=== PATIENT | female | born 1995 | race Caucasian/White ===

== ENCOUNTER 2016-11-18 16:09 | Emergency (ER) | payer OTHER ==
[~2016-11-18] VITALS: Ht 154.9 cm; Wt 52.8 kg
[2016-11-18 16:10] VITALS: BP 132/94; PULSE 102; RESP 20; O2SAT 98
--- NOTE | 2016-11-18 17:22 | ED.REPORT ---
[facility]-Medical Clearance Date of Service Nov 18, 2016 ED Provider: Harjit Romero PA-C Pati is a 21-year-old female with a recent diagnosis of bipolar disorder who presents emergency Department seeking medical clearance for inpatient opiate treatment. Patient reports that she has a bed at [facility] [place] in [place]. She reports a history of heroin abuse as well as a remote history of methamphetamine abuse. She recently discharged from [facility] and is currently prescribed 1 mg 3 times a day Suboxone. She's recently treated for pneumonia with azithromycin. She has one dose left. She reports some right- sided pleuritic chest pain which is aggravated by motion. She denies other physical complaints. She reports a history of a suicide attempt last week for which she was hospitalized at [facility]. she reports a history of self harm by cutting and punching herself. Today she denies suicidal ideation. Nursing Notes Stated Complaint: MEDICAL CLEARANCE FOR REHAB Chief Complaint: Substance Abuse Nursing Notes Reviewed: Yes Allergies: Coded Allergies: No Known Allergies (Verified Allergy, Unknown, 11/18/16) General Time Seen by Provider: 16:47 Chief Complaint : Other (medical clearance for inpatient treatment.) Past Medical History Past Surgical History c/section Smoking History Former Smoker Social History Alcohol Use: In recovery Drug Use: Meth Ambulatory Status Independent Review of Systems General: Denies fever, chills, malaise. HEENT: Denies congestion, headache, sore throat. Respiratory: Admits cough, pleuritic chest pain. Denies wheezing, shortness of breath Cardiovascular: Denies chest pain, palpitations. Gastrointestinal: Denies vomiting, diarrhea, abdominal pain. Genitourinary: Denies frequency, urgency, dysuria, hematuria. Denies vaginal bleeding/discharge. Otherwise as noted in HPI. Physical Exam General: Well appearing, well developed, well nourished, no acute distress. Head: Atraumatic, normocephalic. Eyes: No scleral icterus or injection. No discharge. Vision grossly intact. ENT: Voice clear, hearing grossly intact. Respiratory: Regular rate and rhythm. Breath sounds present, clear to auscultation and equal bilaterally. No respiratory distress. No increased work of breathing, speaks in complete sentences. Cardiovascular: Regular rate and rhythm, without murmur, gallop or rub. No pedal edema. Gastrointestinal: Abdomen flat and non-tender without guarding or rebound. Bowel sounds normoactive. Skin: Warm and dry. Neurological: Normal gait. Grossly nonfocal. Cranial nerves: Vision grossly intact, PERRL, EOMI. Facial motion symmetrical, sensation to light touch over forehead, maxilla and mandible present and equal B /L. Voice clear and fluent, no drooling/pooling of saliva, uvula rises midline. Psychological: Alert and oriented. Speech appropriate, linear and logical. Behavior appropriate. Initial Vital Signs Vital Signs (First) Date Time Temp Pulse Resp B/P Pulse Ox O2 Delivery O2 Flow Rate FiO2 11/18/16 16:10 37.1 102 20 132/94 98 Room Air Mild tachycardia, elevated blood pressure Interpretation & Diagnostics Interpretation & Diagnostics: Urine negative, Urine tox dip positive for marijuana, Breathalyzer 0 Lab Results Interpretation Result Diagram: 11/18/16 1735 11/18/16 1735 Test 11/18/16 17:33 11/18/16 17:35 Hold Urine Received (Received) White Blood Count 9.3th/mm3 (3.8-10.1) Red Blood Count 5.08mil/mm3 (3.90-5.20) Hemoglobin 15.6g/dL (12.0-15.6) Hematocrit 45.9% (35.0-46.0) Mean Corpuscular Volume 90.4fL (81-100) Mean Corpuscular Hemoglobin 30.7pg (27.0-35.0) Mean Corpuscular Hemoglobin Concent 34.0% (32.0-37.0) Red Cell Distribution Width 12.2% (12.3-15.4) Platelet Count 345bil/L (150-400) Neutrophils (%) (Auto) 50% (40-74) Lymphocytes (%) (Auto) 41% (14-46) Monocytes (%) (Auto) 5% (4-12) Eosinophils (%) (Auto) 1% (0-5) Basophils (%) (Auto) 0% (0-3) Band Neutrophils % 3% (1-5) Sodium Level 139mEq/L (134-144) Potassium Level 4.7mEq/L (3.5-5.2) Chloride Level 99mEq/L (97-108) Carbon Dioxide Level 29mmol/L (18-29) Blood Urea Nitrogen 21mg/dL (6-20) Creatinine 0.70mg/dL (0.57-1.00) Estimat Glomerular Filtration Rate 153mL/min (>59) Glucose Level 83mg/dL (60-99) Calcium Level 9.6mg/dL (8.5-10.1) Total Bilirubin 0.2mg/dL (0.0-1.2) Aspartate Amino Transf (AST/SGOT) 27U/L (0-50) Alanine Aminotransferase (ALT/SGPT) 25U/L (0-32) Alkaline Phosphatase 88U/L (25-150) Total Protein 8.0g/dL (6.4-8.4) Albumin 4.6g/dL (3.4-5.0) Thyroid Stimulating Hormone (TSH) 1.730uIU/mL (0.450-4.500) Hold Rogers Top Tube Received (Received) Re-Eval/Medical Decision Med Decision/Clinical Course 21-year-old female with a history of bipolar disorder presents emergency Department seeking medical clearance for inpatient heroin treatment in [place]. Admits recent treatment for pneumonia. Admits suicide attempt last week which consisted of placing a knife to her throat. She was hospitalized at [facility] For [facility] hours. Today she admits some right-sided pleuritic chest pain aggravated by motion, denies suicidal ideation. Physical examination is benign with clear and equal lung sounds. Vital signs reveal mild tachycardia 102 and slightly elevated blood pressure. Chest x-rays ordered as well as breathalyzer, U tox dip, urine , CBC, CMP, TSH. Social work referral was placed. U tox dip is positive only for marijuana. Urine is negative. CBC, CMP are unremarkable. TSH is normal. Chest x-ray is normal. At this point I believe she is medically stable for inpatient treatment. Her pneumonia appears to have resolved. The pain she described in her chest I believe is musculoskeletal, as it is reproducible with palpation and is aggravated by motion. LAWANDA Becerril met with and examine the patient. She believes patient is psychiatrically stable for treatment and will provide documentation of this effect. There is discussion of initiating psychiatric medications, however I do not feel comfortable with this in the emergency room setting and the patient appears to be stable at this time. I do not think it would be appropriate at this time, and I do not believe that this should represent a barrier to inpatient treatment. Advised patient that we will be completing her documentation this evening and will be available her tomorrow at medical records. Advised regarding primary care follow-up, provided emergency return precautions. Patient verbalized understanding of, and consent to, the plan. Discharge & Departure Impression: Primary Impression: Substance abuse Additional Impression: Chest pain, musculoskeletal Disposition: Home Discharge Condition All VS Reviewed: Yes Condition: Stable Additional Instructions: Evaluation for medical clearance to inpatient substance treatment as well as interview, physical examination, blood work and x-ray, all of which are reassuring that there is no medical instability. Your pneumonia appears to have resolved. I believe you are medically cleared to begin inpatient treatment. Our administrator social welfare believes you are psychiatrically stable to begin treatment. We will provide documentation to this effect. Best of luck. Return to the emergency department for new or worsening symptoms. Referrals: [facility] ([facility]) [facility] Provider for APC: Renard Brito MD, Seth PA-C Nov 18, 2016 17:22
[2016-11-18 17:42] LABS: Mean Corpuscular Hemoglobin 30.7 pg (27.0-35.0); Mean Corpuscular Volume 90.4 fL (81-100); Platelet Count 345 bil/L (150-400)
[2016-11-18 18:25] LABS: BASOPHILS % (AUTO) 0 % (0-3); EOSINOPHILS % (AUTO) 1 % (0-5); MONOCYTES % (AUTO) 5 % (4-12); NEUTROPHILS % (AUTO) 50 % (40-74)
[2016-11-18 19:22] VITALS: BP 124/91; PULSE 96; RESP 16; O2SAT 99
--- NOTE | 2016-11-18 19:47 | DRSVH ---
PROCEDURE: X-RAY CHEST, TWO VIEWS ([id number]) INDICATIONS: follow-up pneumonia TECHNIQUE: 2 views of the chest were acquired. COMPARISON: None. FINDINGS: Surgical changes and devices: None. Lungs and pleura: No pleural effusions or pneumothorax. Lungs are clear. Mediastinum: Mediastinal contours are normal. Heart size is normal. Bones and chest wall: No suspicious bony abnormalities. Soft tissues appear unremarkable. IMPRESSION: Lungs are clear. Dictated by: Fiona Berger M.D. on 11/18/2016 at 19:45 Approved by: Fiona Berger M.D. on 11/18/2016 at 19:45
== END 2016-11-18 19:23 | disposition home or self-care (01) ==
LOC: SED 16:09
DX: F11.10 Opioid abuse, uncomplicated (principal); R07.89 Other chest pain; F15.10 Other stimulant abuse, uncomplicated; Z87.01 Personal history of pneumonia (recurrent); Z91.5 Personal history of self-harm; Z87.891 Personal history of nicotine dependence